=== PATIENT | male | born 2000 | race African-American/Black ===

== ENCOUNTER 2023-02-06 09:20 | Emergency (ER) | payer MEDICAID ==
[~2023-02-06] VITALS: Ht 188 cm; Wt 79.5 kg
[2023-02-06 09:29] VITALS: BP 125/75; PULSE 70; RESP 18; TEMP 98.5; O2SAT 100
[2023-02-06] MEDS ORDERED: BACITRACIN ZINC OINT UDPKT TOP ONE (09:30)
== END 2023-02-06 10:55 | disposition home or self-care (01) ==
LOC: ER 09:20
DX: S01.112A Laceration without foreign body of left eyelid and periocular area, initial encounter (principal); V49.49XA Driver injured in collision with other motor vehicles in traffic accident, initial encounter; Y93.89 Activity, other specified; Y92.89 Other specified places as the place of occurrence of the external cause; Y99.8 Other external cause status
CPT/HCPCS: 99283; Z7610

== ENCOUNTER 2023-02-15 16:25 | Emergency (ER) | payer MEDICAID ==
[~2023-02-15] VITALS: Ht 188 cm; Wt 75.0 kg
[2023-02-15 16:34] VITALS: BP 125/66; PULSE 77; RESP 18; TEMP 98.7; O2SAT 100
== END 2023-02-15 23:32 | disposition home or self-care (01) ==
LOC: ER 16:25
DX: S01.81XD Laceration without foreign body of other part of head, subsequent encounter (principal); Z48.02 Encounter for removal of sutures; X58.XXXD Exposure to other specified factors, subsequent encounter
CPT/HCPCS: 99281

== ENCOUNTER 2024-04-09 15:59 | Emergency (ER) | payer MEDICAID ==
[~2024-04-09] VITALS: Ht 188 cm; Wt 82.0 kg
[2024-04-09 16:16] VITALS: O2SAT 99
[2024-04-09 16:18] VITALS: BP 138/55; PULSE 58; RESP 16; TEMP 98.8; O2SAT 99
[2024-04-09] MEDS: LIDOCAINE HCL/PF 1% 10 MG/ML 5ML VIAL INFIL ONE (18:43)
[2024-04-09] MEDS: BACITRACIN ZINC OINT UDPKT TOP ONE (18:43)
[2024-04-09] MEDS ORDERED: IBUP-2029 MT (19:32)
== END 2024-04-09 20:04 | disposition home or self-care (01) ==
LOC: ER 15:59
DX: S01.81XA Laceration without foreign body of other part of head, initial encounter (principal); V89.2XXA Person injured in unspecified motor-vehicle accident, traffic, initial encounter; Y93.89 Activity, other specified; Y92.89 Other specified places as the place of occurrence of the external cause; Y99.8 Other external cause status
CPT/HCPCS: 12011; 99282; J3490; Z7610 ×2

== ENCOUNTER 2024-04-11 08:22 | Emergency (ER) | payer MEDICAID ==
[~2024-04-11] VITALS: Ht 188 cm; Wt 82.0 kg
[~2024-04-11 08:22] MED LIST: IBUP-2029 MT
[2024-04-11 08:25] VITALS: O2SAT 99
[2024-04-11 08:31] VITALS: BP 136/58; PULSE 55; RESP 16; TEMP 98.4; O2SAT 99
== END 2024-04-11 09:09 | disposition home or self-care (01) ==
LOC: ER 08:22
DX: S01.111D Laceration without foreign body of right eyelid and periocular area, subsequent encounter (principal); Z48.00 Encounter for change or removal of nonsurgical wound dressing; X58.XXXD Exposure to other specified factors, subsequent encounter
CPT/HCPCS: 99281

== ENCOUNTER 2024-04-16 08:50 | Emergency (ER) | payer MEDICAID ==
[~2024-04-16] VITALS: Ht 188 cm; Wt 81.6 kg
[2024-04-16 08:51] VITALS: O2SAT 100
[2024-04-16 08:59] VITALS: BP 126/53; PULSE 58; RESP 16; TEMP 98; O2SAT 99
== END 2024-04-16 09:21 | disposition home or self-care (01) ==
LOC: ER 08:50
DX: S01.81XD Laceration without foreign body of other part of head, subsequent encounter (principal); X58.XXXD Exposure to other specified factors, subsequent encounter
CPT/HCPCS: 99281